=== PATIENT | female | born 1955 | race Caucasian/White ===

== ENCOUNTER 2020-09-18 08:03 | Outpatient (CLI) | payer MEDICARE, OTHER ==
[2020-09-18] VITALS (15 sets, daily range): BP systolic 118–157; BP diastolic 64–79
[~2020-09-18] VITALS: Ht 154.9 cm; Wt 68.0 kg
[2020-09-18] MEDS ORDERED: ASPI-630 PO (08:29)
[2020-09-18 08:40] LABS: HEMATOCRIT 42.9 % (36.0-47.0); HEMOGLOBIN 14.5 g/dL (12.0-15.5); RED BLOOD COUNT 5.21 x10^6/uL (3.50-5.40); RED CELL DISTRIBUTION WIDTH 15.1 % (11.5-14.5); WHITE BLOOD COUNT 6.5 x10^3/uL (4.0-11.0)
[2020-09-18 08:52] LABS: PROTHROMBIN TIME PATIENT 13.5 SEC (11.7-14.0)
[2020-09-18 08:53] LABS: CALCIUM 8.5 mg/dL (8.5-10.1); CREATININE 1.2 mg/dL (0.6-1.0); GFR 44.9; POTASSIUM 3.2 mmol/L (3.5-5.1)
[2020-09-18] MEDS ORDERED: LIDOCAINE 1% PF 2 ML VIAL. ONE (09:05)
[2020-09-18] MEDS ORDERED: IODIXANOL 320 MG/ML 100 ML VIAL. ONE ×2 (09:05→10:35)
[2020-09-18] MEDS ORDERED: BIOT1CAP3 PO (09:21)
[2020-09-18] MEDS ORDERED: GINK120T3 PO (09:21)
[2020-09-18] MEDS ORDERED: CALC-497 PO (09:21)
[2020-09-18] MEDS ORDERED: HYDR12.575 PO (09:21)
[2020-09-18] MEDS ORDERED: fentaNYL PF VIAL 100 MCG/2 ML VIAL ONE (09:48)
[2020-09-18] MEDS ORDERED: NITROGLYCERIN 200 MCG/2 ML SYRINGE FOR CATH/VASC LAB. ONE ×2 (09:49→12:23)
[2020-09-18] MEDS ORDERED: VERAPAMIL 5 MG/2 ML VIAL. ONE (09:49)
[2020-09-18] MEDS ORDERED: MIDAZOLAM HCL/PF 2 MG/2 ML VIAL. ONE (09:49)
[2020-09-18] MEDS ORDERED: HEPARIN for IV BOLUS 10,000 UNIT/10 ML VIAL. ONE (09:49)
[2020-09-18] MEDS ORDERED: BIVALIRUDIN 250 MG VIAL. IV ONE ×3 (10:22→11:00)
[2020-09-18] MEDS ORDERED: NITROGLYCERIN 200 MCG/2 ML SYRINGE FOR CATH/VASC LAB. IART ONE ×2 (10:30→11:00)
[2020-09-18] MEDS ORDERED: IODIXANOL 320 MG/ML 100 ML VIAL. IART ONE (10:30)
[2020-09-18] MEDS ORDERED: LIDOCAINE 1% PF 2 ML VIAL. INJ ONE (10:30)
[2020-09-18] MEDS ORDERED: HEPARIN for IV BOLUS 10,000 UNIT/10 ML VIAL. IART ONE (10:30)
[2020-09-18] MEDS ORDERED: fentaNYL PF VIAL 100 MCG/2 ML VIAL IV ONE (10:30)
[2020-09-18] MEDS ORDERED: VERAPAMIL 5 MG/2 ML VIAL. IART ONE (10:30)
[2020-09-18] MEDS ORDERED: CLOPIDOGREL BISULFATE 75 MG TABLET ONE (10:54)
[2020-09-18] MEDS ORDERED: ASPIRIN 325 MG TABLET ONE (10:54)
[2020-09-18] MEDS ORDERED: NITROGLYCERIN SUBLINGUAL 0.4 MG BOTTLE OF 25. SL PRN (11:00)
[2020-09-18] MEDS ORDERED: CLOPIDOGREL BISULFATE 75 MG TABLET PO ONE (11:00)
[2020-09-18] MEDS ORDERED: ACETAMINOPHEN 325 MG TABLET. PO PRN (11:00)
[2020-09-18] MEDS ORDERED: IV 1/2 NORMAL SALINE 1,000 ML IV SCH (11:00)
[2020-09-18] MEDS ORDERED: ASPIRIN CHEWABLE 81 MG TABLET. PO ONE (11:00)
--- NOTE | 2020-09-18 11:00 | PDOC ---
MODERATE SEDATION ASSESSMENT RISKS/ALTERNATIVES Risks/Alternatives Risks and alternatives of this type of sedation and procedure discussed with: RISK/ALTERNATIVES: Patient H & P ON CHART H & P H & P on chart and reviewed for co-morbid conditions and appropriate labs. H&P ON CHART: Yes STATUS PREG STATUS ASSESSED: N/A MEDS/ALLERGIES REVIEWED Meds/Allergies Reviewed Medications and Allergies including time and route of recently administered narcotics and sedatives. MEDS/ALLERGIES REVIEWED: Yes ASA RATING ASA RATING: II AIRWAY ASSESSMENT Airway Assessment Airway patency, oral function limitations, presence of caps, crowns, dentures, partials, and ability to extend neck assessed. AIRWAY ASSESSMENT: Yes MALLAMPATI SCORE MALLAMPATI SCORE: II PRE-SEDATION ASSESSMENT PRE-SEDATION ASSESSMENT: Yes BETINA ROCKWELL MD Sep 18, 2020 11:00
--- NOTE | 2020-09-18 11:17 | CARD ---
MR#: [id number] Date of Study: 09/18/2020 Ordering Physician: BEITNA ROCKWELL, Referring Physician: BETINA ROCKWELL, Tech: SHARON GONZALEZ RTR APPROVED REPORT Technologist: SHARON GONZALEZ RTR Nurse: Marianna Ochoa R.N. Procedure(s) performed: 1. Left heart catheterization, selective coronary angiography and left ventr iculography via right transradial approach 2. Successful PCI/drug-eluting stents placement to the right coronary artery MODERATE SEDATION TIME: 60 MINS FLUORO TIME:18.6 MIN DOSE: 120 GYCM2 CONTRAST: 200CC VISI INDICATION The indication(s) include : unstable angina . CSHA Clinical Frailty Scale CS Clinical Frailty Scale: Managing Well Heart Failure Heart Failure: No PROCEDURE NARRATIVE After explaining the risks, benefits and alternative options, informed consent was obtained from osiris ent. Patient was brought to the cardiac [facility] and right wrist was prepped and draped in the usual fashion after confirming a positive modified Hector's test. Arterial access was obtained in the righ t radial artery and a 6 Greenlandic sheath was inserted. 6 Greenlandic Julian and 6 Green[place]ic JL 3.5 catheters we re used to perform selective angiography of the right and left coronary arteries. 6 Green[place]ic pigtail c atheter was used to perform left ventriculography. The following findings were noted. FINDINGS 1. Hemodynamics: Left ventricular end-diastolic pressure of 8 mmHg. No pullback gradient across the aortic valve. 2. Left ventriculography: Normal left ventricle systolic function with ejection fraction estimated at 65%. No significant mitral regurgitation seen. 3. Coronary angiography: a. The left main coronary artery arose from the left sinus of Valsalva, gave rise to the left anteri or descending and left circumflex arteries and did not show any significant stenosis. b. The left anterior descending artery showed 40% stenosis involving the mid segment. c. The left circumflex artery showed 30% stenosis involving the proximal segment of the third obtuse marginal branch. d. The right coronary artery was a large and dominant vessel arising from the right sinus of Valsalv a that showed 30% stenosis in the proximal segment, 60% stenosis in the midsegment and a critical 95% stenosis in the mid to distal segment with aneurysmal dilatation within the lesion. INTERVENTION The right coronary artery was engaged with a 6 Greenlandic JR4 guide catheter and the stenoses in the mid and distal segments were crossed with a 0.014 inch gridComm guidewire. These were predilated w ith a 2.5 x 15 mm [employer] Emerge balloon following which they were treated with overlapping 2.5 x 20 mm [employer] Promus Elite and 2.5 X 28 mm [employer] Yuliet drug-eluting stents . Follow-up angiography showed resolution of the stenosis to 0% with CASEY-3 distal flow. Patient to lerated the procedure well. Hemostasis was achieved using TR band. There were no immediate complica tions. CASEY Flow CASEY Flow (Pre-Intervention): CASEY-1 CASEY Flow (Post-Intervention): CASEY-3 Conclusion 1. Severe single-vessel coronary disease involving the right coronary artery 2. Normal left ventricle systolic function with ejection fraction estimated at 65% Recommendations 1. Aspirin 325 mg daily for 1 month followed by 81 mg daily 2. Plavix 75 mg daily 3. Cardiovascular risk factor modification Signed by : Betina Rockwell, Electronically Approved : 09/18/2020 11:17:26
[2020-09-18] MEDS ORDERED: CLOP75TA PO (11:46)
[2020-09-18] MEDS ORDERED: METO25TA4 PO (11:46)
[2020-09-18] MEDS ORDERED: ATOR40TA59 PO (11:46)
[2020-09-18] MEDS ORDERED: ASPI325T8 PO (11:46)
--- NOTE | 2020-09-18 14:20 | NUR ---
Right radial TR Band removed, site cleaned and guaze/opsite dressing applied. No complications.
--- NOTE | 2020-09-18 15:23 | NUR ---
Discharge Note: GIOVANNA TRUJILLO [facility] Discharge instructions and discharge home medications reviewed with Patient and a copy given. All questions have been answered and understanding verbalized. The following instructions and handouts were given: Moderate sedation, radial site care, angioplasty with stent placement, Atorvastatin, Metoprolol. Stent card with additional education included. Discontinued right peripheral IV, bandaid applied, no complications. Right radial dressing and armboard intact. Patient discharged to home with her spouse via private vehicle.
[2020-09-18] MEDS ORDERED: METOPROLOL TART IMMED RELEASE 25 MG TABLET. PO SCH (21:00)
[2020-09-18] MEDS ORDERED: ATORVASTATIN CALCIUM 40 MG TABLET. PO SCH (21:00)
[2020-09-19] MEDS ORDERED: CLOPIDOGREL BISULFATE 75 MG TABLET PO SCH (08:00)
[2020-09-19] MEDS ORDERED: ASPIRIN ENTERIC COATED 325 MG TABLET.DR. PO SCH (08:00)
== END 2020-09-18 15:10 | disposition home or self-care (01) ==
LOC: CCL 08:03
PROVIDERS: ATTEND Internal Medicine Cardiovascular Disease
DX: I25.110 Atherosclerotic heart disease of native coronary artery with unstable angina pectoris (principal); I10 Essential (primary) hypertension; Z90.710 Acquired absence of both cervix and uterus; Z98.890 Other specified postprocedural states; Z79.82 Long term (current) use of aspirin; Z79.899 Other long term (current) drug therapy; Z20.828 Contact with and (suspected) exposure to other viral communicable diseases
CPT/HCPCS: 36415; 80048; 85027; 85610; 87426; 93458; 99152; 99153; C1725; C1769; C1874; C1887; C1892; C9600; C9803; J0583; J1644; J3010; J3490; Q9967; U0003; 92928; C1713

== ENCOUNTER → 2020-10-17 | Outpatient (CLI) | payer MEDICARE, OTHER ==
[2020-09-18 15:00] VITALS: BP 122/66
[~2020-10-17] MED LIST: ASPI-630 PO; ASPI325T8 PO; ATOR40TA59 PO; BIOT1CAP3 PO; CALC-497 PO; CLOP75TA PO; GINK120T3 PO; HYDR12.575 PO; METO100T7 PO; METO25TA4 PO
--- NOTE | 2020-10-18 08:18 | CARD ---
MR#: [id number] Date of Study: 10/17/2020 Ordering Physician: BETINA ROCKWELL, Referring Physician: BETINA ROCKWELL, Tech: Farnaz Santiago APPROVED REPORT EXAM: Two-dimensional and M-mode echocardiogram with Doppler and color Doppler. Other Information Quality : AverageHR: 75bpm INDICATION Chest Pain RISK FACTORS Hypertension 2D DIMENSIONS RVDd3.1 (2.9-3.5cm)Left Atrium(2D)3.5 (1.6-4.0cm) IVSd1.3 (0.7-1.1cm)Aortic Root(2D)3.1 (2.0-3.7cm) LVDd4.5 (3.9-5.9cm)LVOT Diameter2.0 (1.8-2.4cm) PWd1.2 (0.7-1.1cm)LVDs2.3 (2.5-4.0cm) LVEF(%)75.0 (>50%) Aortic Valve AoV Peak Haider.132.9cm/sAoV VTI30.6cm AO Peak GR.7.1mmHgLVOT Peak Haider.94.2cm/s LVOT VTI 22.26cmAO Mean GR.4mmHg Mitral Valve MV E Cvjmsero73.4cm/sMV DECEL BOBR532yb MV A Ebzqqjqy69.0cm/sMV YHN88yy E/A Ratio0.9MVA (PHT)3.44cm2 TDI E/Lateral E'10.1E/Medial E'10.2 Pulmonary Valve PV Peak Rbsuvogh33.8cm/sPV Peak Grad.2mmHg Tricuspid Valve TR P. Ajfjrtwj868dy/sRAP GDFOFAZF8zfPe TR Peak Gr.27tgYySXFQ18ujFk Pulmonary Vein S1 Kqbuzhjk61.7cm/sD2 Yjzxzlba71.1cm/s PVa ucrzjrmx489vqui LEFT VENTRICLE The left ventricle is normal size. There is mild to moderate concentric left ventricular hypertrophy. The left ventricular systolic function is normal and the ejection fraction is within normal range. T he Ejection Fraction is 60-65%. There is normal LV segmental wall motion. Transmitral Doppler flow pa ttern is Grade I-abnormal relaxation pattern. RIGHT VENTRICLE The right ventricle is normal size. There is normal right ventricular wall thickness. The right ventr icular systolic function is normal. ATRIA The left atrium size is normal. The right atrium size is normal. The interatrial septum is intact wit h no evidence for an atrial septal defect or patent foramen ovale as noted on 2-D or Doppler imaging. AORTIC VALVE The aortic valve is normal in structure and function. Doppler and Color Flow revealed no significant aortic regurgitation. There is no significant aortic valvular stenosis. MITRAL VALVE The mitral valve is normal in structure and function. There is no evidence of mitral valve prolapse. There is no mitral valve stenosis. Doppler and Color-flow revealed trace mitral regurgitation. TRICUSPID VALVE The tricuspid valve is normal in structure and function. Doppler and Color Flow revealed trace tricus pid regurgitation with an estimated PAP of 36 mmHg. There is no tricuspid valve stenosis. PULMONIC VALVE The pulmonic valve is not well visualized. Doppler and Color Flow revealed trace pulmonic valvular re gurgitation. There is no pulmonic valvular stenosis. GREAT VESSELS The aortic root is normal in size. The ascending aorta is normal in size. The IVC is normal in size a nd collapses >50% with inspiration. PERICARDIAL EFFUSION There is no evidence of significant pericardial effusion. Critical Notification Critical Value: No <Conclusion> There is mild to moderate concentric left ventricular hypertrophy. The left ventricular systolic function is normal and the ejection fraction is within normal range. Th e Ejection Fraction is 60-65%. There is normal LV segmental wall motion. Signed by : Mg Mayers, Electronically Approved : 10/18/2020 08:18:18
== END ==
LOC: ECHO 12:54
PROVIDERS: ATTEND Internal Medicine Cardiovascular Disease
DX: I51.7 Cardiomegaly (principal); R07.9 Chest pain, unspecified
CPT/HCPCS: 93306

== ENCOUNTER → 2020-11-07 | Outpatient (CLI) | payer MEDICARE, OTHER ==
[2020-09-18 15:00] VITALS: BP 122/66
[~2020-11-07] MED LIST changes: +LIDOCAINE 1% Multi-Dose 20 ML VIAL. INJ ONE
--- NOTE | 2020-11-07 17:04 | RAD ---
ADDENDUM #1 Addendum: Pathology results from the right breast needle biopsy of the 1:00 position indicates invasive ductal carcinoma grade 2. Right axillary lymph node biopsy should no evidence of metastatic carcinoma, favor reactive changes. Pathology results from left breast needle biopsy 1:00 position showed stromal fibrosis with focal apo crine metaplasia. Left axillary lymph node biopsy showed no evidence of metastatic carcinoma, favor r eactive changes. Pathology results are concordant. Malignant on the right, benign on the left. Recommend medical oncologic and surgical consultation. Bilateral breast MRI could be considered for initial staging prior to definitive therapy. Electronically signed by: Gene Sunshine MD (11/15/2020 5:21 PM) [id number] ORIGINAL REPORT Examination: 1. Ultrasound-guided left breast core needle biopsy. 2. Ultrasound-guided left axillary lymph node biopsy. 3. Ultrasound-guided right breast core needle biopsy. 4. Ultrasound-guided right axillary lymph node biopsy. INDICATION: 65-year-old woman with bilateral breast masses and bilateral axillary adenopathy recommen ded for biopsy. She had been on Plavix but had skipped her morning dose on the day of the procedure f or this biopsy. COMPARISON: Bilateral digital diagnostic mammogram and targeted breast ultrasounds of 09/25/2020. TECHNIQUE: Informed consent was obtained and an appropriate procedural pause observed. Then, using separate ster ile equipment in 4 successive procedures starting with the left breast 5 mm mass, proceeding with the left axillary lymph node, continuing with the right breast 6 mm mass and concluding with the right a xillary lymph node, the following procedures were performed in succession. Using standard sterile technique, ultrasound guidance and local anesthesia with 1 percent lidocaine, multiple 14-gauge core biopsy samples of the biopsy target were obtained with all breast lesion sampl es placed in formalin and one of 2 of the axillary lymph node tissue samples obtained from each side placed in formalin as well. The second biopsy sample from each lymph node was placed in fixative for potential flow cytometry. Hemostasis was assured at the conclusion of each lesion biopsy with direct breast compression for sev eral minutes. The right breast lesion at the 10:00 position 2 cm from the nipple was marked with an open padlock sh aped marker. The right axillary lymph node was also marked with a similarly shaped marker. The left breast lesion at the 10:00 position 9 cm from the nipple was marked with an S-shaped marker and so was the left axillary lymph node targeted for biopsy. Marker positioning in each lesion was satisfactory on ultrasound but a post procedure mammogram was o btained bilaterally to document clip morphology and positioning relative to the biopsy targets. This showed satisfactory deployment of the bilateral breast marker is an of the left axillary lymph node m carolann. The right axillary lymph node marker was not easily included on the [id number] in any of th e obtainable projections. There was however no postbiopsy hematoma and the patient tolerated the procedure without incident. The puncture sites were dressed and postprocedure instructions reviewed prior to patient discharge to follow up with her referring physician. IMPRESSION: Successful, uncomplicated bilateral breast and bilateral axillary lymph node biopsy with ultrasound g ceasar. Pathology results are pending. An addendum will be issued once pathology results become avai lable. Electronically signed by: Gene Sunshine MD (11/07/2020 5:02 PM) [id number]
--- NOTE | 2020-11-12 16:06 | PATHOLOGY ---
[facility] Accession Number: [id number] . 01 Material submitted: . PART A: breast - LEFT BREAST MASS AT 1:00 9CMFN. Modifiers: left PART B: axillary tail of breast - LEFT AXILLARY NODE TISSUE. Modifiers: left PART C: breast - RIGHT BREAST MASS 1:00 2CMFN 6MM. Modifiers: right PART D: axillary tail of breast - RIGHT AXILLARY NODE BIOPSY. Modifiers: right . 01 Clinical history: . LEFT BREAST MASS 1:00 9CMFN . 02 Diagnosis: A. Breast tissue, left breast mass 1:00 needle biopsies: - Stromal fibrosis with focal apocrine metaplasia. . B. Lymph node, left axillary lymph node needle biopsy: - No evidence of metastatic carcinoma - favor reactive changes. - See comment. . C. Breast tissue, right breast needle biopsy 1:00: - INVASIVE DUCTAL CARCINOMA, GRADE 2. SEE COMMENT. . D. Lymph node, right axillary lymph node needle biopsy: - No evidence of metastatic carcinoma - favor reactive changes. - See comment. (JPM/db/juvenal; 11/12/2020) LBQ 11/12/2020 1402 Local . 02 Comment: Sections of the left breast mass at 1:00 needle biopsy reveal breast tissue. There is a confluent area of stromal fibrosis with focal apocrine metaplasia. There is no atypia or evidence of malignancy. . Sections of the left axillary lymph node needle biopsy reveal a segment of lymph node with focal attached fibroadipose tissue. There are scattered apparent lymphoid follicles with germinal centers. The paracortex appears expanded and is populated by small lymphocytes. There is no evidence of metastatic carcinoma. A portion of the lymph node submitted for flow cytometric analysis has a viability of 73.6%. B-cells are polyclonal and T-cells have no loss of T-cell antigens. There is no flow immunophenotypic evidence of a B-cell or T-cell lymphoproliferative disorder (see flow report [id number]). A panel of immunoperoxidase stains is obtained on B1 and yields the following results: . AE1/AE3: Negative for metastatic carcinoma CD20: Lymphoid cells of lymphoid follicles and germinal centers positive CD3: Paracortical lymphoid cells positive CD5: Paracortical lymphoid cells positive similar to CD3 CD23: Dendritic cells of lymphoid follicle germinal centers positive CD10: Germinal center lymphoid cells positive BCL6: Lymphoid cells of germinal centers positive BCL2: Lymphoid cells of germinal centers negative; paracortical lymphoid cells positive Cyclin D1: Lymphoid cells negative CD43: Paracortical lymphoid cells positive Ki-67: Lymphoid cells of germinal centers show high proliferation index. . The morphologic and immunophenotypic findings are supportive of the diagnosis of a reactive lymph node. There is no evidence of metastatic carcinoma. . Sections of the right breast mass at 1:00 needle biopsy reveal an invasive mammary carcinoma with focal crush artifactual changes. The tumor shows modest tubule formation. The tumor cells show moderate nuclear pleomorphism. There are several mitotic figures present. The tumor is associated with a reactive desmoplastic stroma. There is a rare tumor associated calcification. The invasive carcinoma measures up to 7 mm in greatest dimension on the glass slide. There is no lymphovascular tumor invasion. Breast prognostic studies will be obtained on block C2, the results of which will be reported separately. . Sections of the right axillary lymph node needle biopsy reveal lymph node and focal attached fibroadipose tissue. There are scattered lymphoid follicles with germinal centers. The paracortex appears expanded by small lymphocytes. There is no evidence of metastatic carcinoma. A portion of the specimen is submitted for flow cytometric analysis and has a viability of 68.4%. B-cells are polyclonal and T-cells have no loss of T-cell antigens. There is no flow immunophenotypic evidence of a B-cell or T-cell lymphoproliferative disorder (see flow report [id number]). A panel of immunoperoxidase stains is obtained on D1 and yields the following results: . AE1/AE3: Negative for metastatic carcinoma. CD20: Lymphoid cells of lymphoid follicles and germinal centers positive. CD3: Paracortical lymphoid cells positive. CD5: Paracortical lymphoid cells positive similar to CD3. CD23: Dendritic cells of lymphoid follicle germinal centers positive. CD10: Lymphoid cells of germinal centers weakly positive. BCL6: Lymphoid cells of germinal centers positive. BCL2: Lymphoid cells of germinal centers negative; paracortical lymphoid cells positive. Cyclin D1: Lymphoid cells negative. CD43: Paracortical lymphoid cells positive. Ki-67: Lymphoid cells of germinal centers show high proliferation index. . The morphologic and immunophenotypical findings are supportive of the diagnosis of a reactive lymph node. There is no evidence of metastatic carcinoma. . Sections of the right breast mass at 1:00 needle biopsy, which show an invasive ductal carcinoma, are also examined by Dr. Dumont, who concurs with the diagnosis. . Although the left axillary and right axillary lymph node needle biopsies show reactive changes and no evidence of metastatic carcinoma, I would caution that the needle biopsies represent a small portion of these enlarged lymph nodes such that I cannot exclude a focal lesion elsewhere within these lymph nodes. (JPM/db/juvenal; 11/12/2020) . Special stains performed: Immunoperoxidase stains for AE1/AE3, CD20, CD3, CD5, CD23, CD10, BCL6, BCL2, cyclin D1, CD43, Ki-67 on B1, and AE1/A3, CD20, CD3, CD5, CD23, CD10, BCL6, BCL2, cyclin D1, CD43, and Ki-67 on D1. . 02 Electronically signed: . Casa Richardson MD, Pathologist NPI- [id number] . 01 Gross description: . A. The specimen is received in formalin, labeled "Briana Peñaloza, left breast 1:00 9 cm FN" and consists of 3 needle cores of white-yellow tissue measuring between 1.0 cm and 1.2 cm in length and 0.2 cm each in diameter which are entirely submitted in A1-A3. The specimen was obtained at 10:11 AM on 11/07/2020 and placed in formalin at 10:11 AM. The cold ischemic time is less than 1 minute and the total formalin fixation time is greater than 6 hours and less than 72 hours. . B. The specimen is received in formalin, labeled "Briana Peñaloza, left axilla node" and consists of a needle core of rowe-yellow tissue measuring 1.8 cm in length and 0.2 cm in diameter which is entirely submitted in B1. . C. The specimen is received in formalin, labeled "PeñalozaBriana, right breast 1:00 2 cm FN" and consists of 4 needle cores of yellow tissue measuring between 0.6 cm and 1.2 cm in length and 0.1-0.2 cm in diameter which are entirely submitted in C1-C3. The specimen was collected at 11:01 AM on 11/07/2020 and placed in formalin at 11:01 AM. The cold ischemic time is less than 1 minute and the total formalin fixation time is greater than 6 hours less than 72 hours. . D. The specimen is received in formalin, labeled "Briana Peñaloza, right axillary node" and consists of a needle core of pink-yellow tissue measuring 1.4 cm in length and 0.1 cm in diameter which is entirely submitted in D1. (SDY; 11/07/2020) SYU/SYU 11/08/2020 1521 Local . 02 Pathologist provided ICD-10: N60.32, N60.82, C50.911 . 02 CPT . 936139, 500216, [id number], [id number], [id number], [id number] Specimen Comment: A courtesy copy of this report has been sent to [phone], [phone] Specimen Comment: [id number] Specimen Comment: Report sent to / DR VILLAREAL Performed at: 01 [facility] [address], [place] [id number] MD Baljeet Sena MD Phone: [phone] Performed at: [facility] [address] [place], [place] [id number] MD Casa Richardson MD Phone: [phone]
== END | disposition home or self-care (01) ==
LOC: US 09:24
PROVIDERS: ATTEND Surgery
DX: N60.32 Fibrosclerosis of left breast (principal); N60.82 Other benign mammary dysplasias of left breast; C50.911 Malignant neoplasm of unspecified site of right female breast; I25.10 Atherosclerotic heart disease of native coronary artery without angina pectoris; I10 Essential (primary) hypertension; Z90.710 Acquired absence of both cervix and uterus; Z98.890 Other specified postprocedural states; Z79.899 Other long term (current) drug therapy; Z79.82 Long term (current) use of aspirin
CPT/HCPCS: 19083; 38505; 76942; 77066; 88184; 88185; 88305; 88341; 88342; 88361; C1713; 19081; 19084

== ENCOUNTER 2020-11-28 07:35 | Day surgery (SDC) | payer MEDICARE ==
[~2020-11-28] VITALS: Ht 154.9 cm; Wt 72.0 kg
[~2020-11-28 07:35] MED LIST changes: +ACETAMINOPHEN 500 MG TABLET PO ONE; +HYDROmorphone 2 MG/ML VIAL IVP PRN; +IV RINGERS,LACTATED 1000ML 1,000 ML IV SCH; -LIDOCAINE 1% Multi-Dose 20 ML VIAL. INJ ONE; +MORPHINE SULFATE 2 MG/ML VIAL. IVP PRN; +PROCHLORPERAZINE 10 MG/2 ML VIAL. IVP PRN; +ceFAZolin SODIUM IV Push 1 GM VIAL. IVP ONE; +fentaNYL PF VIAL 100 MCG/2 ML VIAL IVP PRN
[2020-11-28] MEDS ORDERED: PROPOFOL 10 MG/ML (20ML) VIAL. IV ONE (09:25)
[2020-11-28] MEDS ORDERED: ISOSULFAN BLUE 1% 50 MG/5 ML VIAL. SQ ONE (09:25)
[2020-11-28] MEDS ORDERED: FAMOTIDINE 20 MG/2 ML VIAL ONE (09:25)
[2020-11-28] MEDS ORDERED: DEXAMETHASONE SOD PHOS 4 MG/ML VIAL ONE (09:25)
[2020-11-28] MEDS ORDERED: ONDANSETRON PF 4 MG/2 ML VIAL. ONE (09:25)
[2020-11-28] MEDS ORDERED: LIDOCAINE 2% PF 5 ML VIAL. ONE (09:25)
[2020-11-28] MEDS ORDERED: BUPIVACAINE-EPI 0.25% 30 ML VIAL KIT. ONE (09:39)
[2020-11-28] MEDS ORDERED: hydrALAZINE 20 MG/ML VIAL. ONE (09:41)
[2020-11-28] MEDS ORDERED: hydrALAZINE 20 MG/ML VIAL. IVP PRN (10:00)
[2020-11-28] MEDS ORDERED: fentaNYL PF VIAL 100 MCG/2 ML VIAL ONE (10:01)
[2020-11-28] MEDS ORDERED: PHENYLEPHRINE in 0.9% NACL PF 1 MG/10 ML SYRINGE. IV ONE (10:12)
[2020-11-28] MEDS ORDERED: ePHEDrine PF IN SALINE 50 MG/10 ML SYRINGE. IV ONE (10:17)
--- NOTE | 2020-11-28 11:10 | RAD ---
Examination: Right breast specimen radiograph INDICATION: Status post lumpectomy for right breast invasive ductal carcinoma. COMPARISON: 11/07/2020 right postprocedure mammogram FINDINGS: A single lumpectomy surgical specimen is presented for review, placed on a grid in the specimen cup. The biopsied mass and biopsy marker within the mass are evident in the specimen, projecting over the letter G on the grid. This is eccentrically located within the specimen. There is no localizing wire or seed. IMPRESSION: Surgical specimen contains the biopsied mass and biopsy marker. Discussed with Dr. Knutson by telephone at 11:02 AM on 11/28/2020
--- NOTE | 2020-11-28 11:11 | PDOC4 ---
Operative Note Operative Note Date: November 282020 at 1107 Preoperative diagnosis: Right breast cancer Postoperative diagnosis: Same Procedure: Right breast lumpectomy with sentinel lymph node biopsy Surgeon: Eamon Specimen: Right axillary sentinel lymph node and right breast lumpectomy Dictation: Patient is a 65-year-old female who on mammogram was found to have a suspicious lesion in her right breast stereotactic breast biopsy was performed which showed invasive ductal carcinoma. The procedure of lumpectomy with sentinel lymph node biopsy was explained to the patient in detail risk-benefit were also discussed including bleeding infection. Alternatives to this procedure also discussed with the patient who seemed to understand and gave both verbal and written consent to have the procedure performed. Patient was taken to the operating room placed in the supine position general anesthesia was initiated once patient was sleeping intubated her right chest was prepped and d raped usual sterile fashion using ChloraPrep. Area in the 4 quadrants around the nipple areolar complex were injected with Lymphazurin and this was allowed 5 minutes to migrate. Using the [place] counter the axilla was investigated there was an area where the signal was quite high this was the area that was injected with quarter percent Marcaine with epinephrine incision was made with a 15 blade scalpel is carried down through the subcutaneous tissue using electrocautery right hemostasis a chain lymphatic with Lymphazurin within it was followed slightly deeper and a moderate sized lymph node was encountered that was also blue with Lymphazurin. As this was removed there were 3 other lymph nodes that were closely adherent which were also removed with the sentinel node. These were sent for frozen section. Once this was complete tensions returned to the lumpectomy area over the breast at about the 1 o'clock position 1 cm from the nipple areolar complex was injected with quarter percent Marcaine with epinephri ne incision was made with 15 blade scalpel is carried down to subcutaneous tissue using electrocautery right hemostasis using electrocautery large specimen of tissue was excised and marked with suture the superior border was marked with a short stitch the lateral border with a long stitch and double stitches for the deep margin. The specimen was then sent to radiology to verify clip placement. By radiology report clip was within the specimen. The wound was then closed in 2 layers the deep layer running 3-0 Vicryl and the skin was reapproximated for subcuticular Monocryl the axillary incision was closed in similar fashion with a deep layer running 3-0 Vicryl and the skin was reapproximated for subcuticular Monocryl Mastisol Steri-Strips and island dressing were applied. Patient was awakened and extubated in the operating room taken to recovery in stable condition all sponge instrument needle counts listed as correct estimated blood loss 20 mL. LEVI VILLAREAL MD Nov 28, 2020 11:11
--- NOTE | 2020-11-28 11:13 | DISCH ---
DISCHARGE INSTRUCTIONS Condition on Discharge Condition on Discharge: Stable Activity After Discharge Activity Instructions for Disc: Activity as tolerated Diet after Discharge Diet after Discharge: Regular Wound Incision Care Other wound/incision instructi: Kristel shower in 24 hours Contacting the DRRisa after DC Call your doctor for: If your condition worsens Follow-Up Follow up with: Dr. Villareal in 2 weeks Treatment/Equipment after DC Adaptive Equipment Issued: None LEVI VILLAREAL MD Nov 28, 2020 11:13
[2020-11-28] MEDS ORDERED: HYDROcodone/APAP 5/325MG 1 TAB TABLET PO ONE (12:15)
[2020-11-28 12:20] VITALS: BP 164/85
--- NOTE | 2020-11-29 18:30 | RAD ---
Radiopharmaceutical injection of the right breast for sentinel node mapping INDICATION: 65-year-old woman with new diagnosis right breast cancer. COMPARISON: Right postprocedure mammogram of 11/07/2020 TECHNIQUE AND FINDINGS: Informed consent was obtained and an appropriate procedural pause observed. Using standard sterile te chnique, a total of 1000 uCi of technetium labeled Tilmanocept radiopharmaceutical was injected in a single hypodermal periareolar injection. This was completed at approximately 9:25 am on 11/28/2020. No apparent complications. The wheel was sized and patient transported in stable condition to the perio perative care unit. IMPRESSION: Right breast radiopharmaceutical injection for sentinel node mapping as described. Electronically signed by: Gene Sunshine MD (11/29/2020 6:28 PM) [id number]
--- NOTE | 2020-12-05 16:09 | PATHOLOGY ---
[facility] Accession Number: [id number] . 01 Material submitted: . PART A: lymph node - RIGHT SENTINEL NODE. Modifiers: right PART B: breast - RIGHT BREAST MASS SHORT STITCH SUPERIOR LONG, STITCH LAT DOUBLE DEEP. Modifiers: right . 01 Clinical history: . RIGHT BREAST LUMPECTOMY . 02 Frozen section diagnosis: . INTRAOPERATIVE CONSULTATION WITH FROZEN SECTION (Dr. Casa Richardson) . FSA1. [place] lymph node biopsy: - Four lymph nodes negative for tumor. . The results are reported to Dr. Knutson in the operating room. The tissue remaining from frozen section is submitted for permanent sections as A1 and A2. The remainder of the 3 smaller lymph nodes are submitted together in A3. . . INTRAOPERATIVE CONSULT GROSS DESCRIPTION The specimen is received fresh for intraoperative consultation and is designated "sentinel node". This consists of an irregular segment of yellow-red fatty tissue measuring up to 4.5 x 3.0 x 1.0 cm in greatest dimension. Sectioning reveals 4 lymph nodes. There are 3 smaller lymph nodes, each measuring approximately 1 to 1.2 cm in greatest dimension. The largest lymph node shows focal blueish discoloration and measures up to approximately 2 cm in greatest dimension. The largest lymph node is bisected and submitted for frozen section as FSA1. One of the smaller lymph nodes is inked blue. Another of the smaller lymph nodes is inked black. The remaining small lymph node is not inked. One half of each of these lymph nodes are submitted together for frozen section as FSA2. (JPM:alayna; 11/28/2020) . Frozen section performed at [facility], [address] [place] [address], [place] [address]. MAUDE/FABY . 02 Diagnosis: A. Lymph nodes and fibroadipose tissue, sentinel lymph node biopsy: - Four lymph nodes negative for tumor (0/4). . B. Breast tissue, right breast lumpectomy: - INVASIVE DUCTAL CARCINOMA, HISTOLOGIC GRADE 2, MEASURING 7 MM IN GREATEST DIMENSION. - Tumor is approximately 7 mm from the closest medial, anterior, and posterior margins of resection. - No lymphovascular tumor invasion identified. - Previous biopsy site changes. - Fibrocystic changes with focal mild ductal epithelial hyperplasia. (JPM:mmmelanie; 12/05/2020) . . Surgical Pathology Cancer Case Summary . Protocol posting date: November 2019 . Procedure ___ Other: Lumpectomy . Specimen Laterality ___ Right . Tumor Site ___ Clock position: 1 o'clock . Tumor Size ___ Greatest dimension of largest invasive focus >1 mm: 7 mm . Histologic Type ___ Invasive carcinoma of no special type (ductal) . Histologic Grade (Cyril Histologic Score) Glandular (Acinar)/Tubular Differentiation ___ Score 2 (10% to 75% of tumor area forming glandular/tubular structures) . Nuclear Pleomorphism ___ Score 2 (cells larger than normal with open vesicular nuclei, visible nucleoli, and moderate variability in both size and shape) . Mitotic Rate ___ Score 2 . Overall Grade ___ Grade 2 (scores of 6 or 7) . + Tumor Focality + ___ Single focus of invasive carcinoma . Ductal Carcinoma In Situ (DCIS) ___ Not identified . Margins Invasive Carcinoma Margins ___ Uninvolved by invasive carcinoma Distance from closest margin: ___ Specify 7 mm . + Specify closest margin(s): Medial, anterior, and posterior . Regional Lymph Nodes ___ Uninvolved by tumor cells Total Number of Lymph Nodes Examined: 4 Number of [place] Nodes Examined: 4 . + Lymphovascular Invasion + ___ Not identified . Pathologic Stage Classification (pTNM, AJCC 8th Edition) Primary Tumor (pT) ___ pT1b:Tumor >5 mm but less than or equal to 10 mm in greatest dimension . Regional Lymph Nodes (pN) ___ pN0:No regional lymph node metastasis identified or ITCs only . + Additional Pathologic Findings + Specify: See diagnoses . + ___ Breast Biomarker Testing Performed on Previous Biopsy + Testing Performed on . + Estrogen Receptor (ER) + ___ Positive: 90% . + Progesterone Receptor (PgR) + ___ Positive 15% . + HER2 + ___ Negative (Score 1+) . + ___ Ki-67 percentage of positive nuclei: 25% . + Microcalcifications + ___ Present in non-neoplastic tissue . (JPM:alayna; 12/05/2020) [facility] 12/05/2020 1539 Local . 02 Comment: Examination of the sentinel lymph node biopsy actually reveals four lymph nodes. The sentinel lymph nodes are examined at multiple levels. Immunoperoxidase stains for AE1/AE3 are also obtained on each of the sentinel lymph node biopsy sections and yield the following results: . AE1/AE3 (A1): Negative for tumor AE1/AE3 (A2): Negative for tumor AE1/AE3 (A3): Negative for tumor . There are a total of four sentinel lymph nodes, all of which are negative for tumor. . Special stains performed: Immunoperoxidase stains for AE1/AE3 on A1, A2 and A3 . (JPM:julia; 12/05/2020) . . 02 Electronically signed: . Casa Richardson MD, Pathologist NPI- [id number] . 01 Gross description: . A. PLEASE SEE GROSS DESCRIPTION UNDER FROZEN SECTION DIAGNOSIS. . B. The specimen is received in formalin, labeled "Briana Peñaloza, Jason breast mass" and consists of an oriented 96 g lumpectomy specimen with a short stitch superior, long lateral, and double deep. It measures 7.8 cm S-I, 7.1 cm L-M, 2.5 cm A-P, and is inked as follows: superior-blue, inferior-green, medial-red, lateral-yellow, anterior-orange, and posterior-black. It is sectioned from superior to inferior into 17 slices revealing a pink-rowe stellate mass in slices 10-12 measuring 1.5 x 1.0 cm that is to margins as follows: Grossly approaches medial, 4.3 cm lateral, 1.0 cm posterior, 1.0 cm anterior, and greater than 2 cm superior and inferior. The mass shows previous biopsy changes. No clip is identified. The uninvolved parenchyma is yellow orange lobulated with minimal fibrous tissue and no additional masses. Pulp Press Tender sections are submitted as follows: . B1-B3: Slice 1 superior, perpendicular B4-B6: Slice 9 B7-B9: Slice 10 B10-B12: Slice 11 B13-B16: Slice 12 B17-B19: Slice 17 inferior, perpendicular . The specimen was obtained at 10:48 AM on 11/28/2020 and placed in formalin 11 AM. The cold ischemic time is 12 minutes and the total formalin fixation time is greater than 6 hours and less than 72 hours. (SDY; 11/29/2020) SYU/SYU 11/30/2020 1730 Local . 02 Pathologist provided ICD-10: C50.911, N60.11, N62 . 02 CPT . 763950, 792192, 991668, 618196, [id number] Specimen Comment: Report sent to Performed at: 01 [facility] [address] [facility] [address], [place] [id number] MD Baljeet Sena MD Phone: [phone] Performed at: 02 [facility] [address] [place], [place] [id number] MD Casa Richardson MD Phone: [phone]
== END 2020-11-28 12:00 | disposition home or self-care (01) ==
LOC: NM 07:35
PROVIDERS: ATTEND Surgery
DX: C50.911 Malignant neoplasm of unspecified site of right female breast (principal); N60.11 Diffuse cystic mastopathy of right breast; N62 Hypertrophy of breast; I25.10 Atherosclerotic heart disease of native coronary artery without angina pectoris; I10 Essential (primary) hypertension; Z90.710 Acquired absence of both cervix and uterus; Z98.890 Other specified postprocedural states; Z79.899 Other long term (current) drug therapy; Z79.82 Long term (current) use of aspirin; Z20.822 Contact with and (suspected) exposure to COVID-19
CPT/HCPCS: 19301; 38525; 38792; 76098; 87426; 96374; A9520; C9803; J0360; J0690; J1100; J2370; J2405; J2704; J3010; J3490; J7120; Q9968; U0003; 88307; 88331; 88332; 88342

== ENCOUNTER → 2021-01-25 | Outpatient (CLI) | payer MEDICARE ==
[~2021-01-25] MED LIST changes: -ACETAMINOPHEN 500 MG TABLET PO ONE; -HYDROmorphone 2 MG/ML VIAL IVP PRN; -IV RINGERS,LACTATED 1000ML 1,000 ML IV SCH; -MORPHINE SULFATE 2 MG/ML VIAL. IVP PRN; -PROCHLORPERAZINE 10 MG/2 ML VIAL. IVP PRN; -ceFAZolin SODIUM IV Push 1 GM VIAL. IVP ONE; -fentaNYL PF VIAL 100 MCG/2 ML VIAL IVP PRN
--- NOTE | 2021-01-25 14:53 | KCIC ---
EXAM: DUAL ENERGY X-RAY ABSORPTIOMETRY (DEXA). HISTORY: Postmenopausal screening. Breast cancer. FINDINGS: The lowest measured T-score is -1.1 in the left hip, based on a bone mineral density of 0.8 02 g/cm^2. Refer to the worksheets for full detail. No comparison examinations are available. IMPRESSION: 1. Low bone mass. Bone mineral density yields a T-score between -1.0 and -2.5. Fracture risk is incre ased. 2. FRAX report: Not calculated. METHODOLOGY: Dual energy x-ray absorptiometry was performed to measure bone mineral density. The foll owing analysis is based on the 2019 Official Positions of the International Society for Clinical Dens itometry: Measurements of the hips and the average of L1-L4 are preferred. When the spine and/or hip cannot be feasibly measured or interpreted, or in the setting of hyperparathyroidism, distal radial bone minera l density may be measured. The lumbar spine T-score is based on the average bone mineral density of L1-L4. In the setting of art ifact or anatomic abnormality, some lumbar levels may be excluded, and the remaining levels used for calculation. A single lumbar level is not used for diagnosis, and if only a single level is available for assessment, another anatomic site will be used to assign a diagnosis. The hip T-score is based on the bone mineral density measurement of the femoral neck or total proxima l femur of either side, whichever is lowest. Bilateral mean values are not used for diagnosis. The forearm T-score is derived from 33% of the distal radius of the nondominant forearm. Electronically signed by: Nadege Moon MD (01/25/2021 2:51 PM) [id number]
== END ==
LOC: KCIC DEXA 14:22
PROVIDERS: ATTEND Internal Medicine Hematology & Oncology
DX: Z78.0 Asymptomatic menopausal state (principal); M89.9 Disorder of bone, unspecified
CPT/HCPCS: 77080

== ENCOUNTER → 2021-01-29 | Outpatient (CLI) | payer MEDICARE ==
[2021-01-29 15:13] LABS: BASO # 0.1 x10^3/uL (0.0-0.2); BASO % 1 % (0-3); EOS # 0.3 x10^3/uL (0.0-0.7); EOS % 5 % (0-3); HEMATOCRIT 33.4 % (36.0-47.0); HEMOGLOBIN 11.1 g/dL (12.0-15.5); LYMPH # 0.7 x10^3/uL (1.0-4.8); LYMPH % 11 % (24-48); MEAN CORPUSCULAR HEMOGLOBIN 27 pg (25-35); MEAN CORPUSCULAR HGB CONC 33 g/dL (31-37); MEAN CORPUSCULAR VOLUME 81 fL (79-100); MONO # 0.7 x10^3/uL (0.0-1.1); MONO % 11 % (0-9); NEUT # 4.4 x10^3/uL (1.8-7.7); NEUT % 72 % (31-73); PLATELET COUNT 458 x10^3/uL (140-400); RED CELL DISTRIBUTION WIDTH 15.1 % (11.5-14.5); WHITE BLOOD COUNT 6.2 x10^3/uL (4.0-11.0)
== END ==
LOC: ONCLAB 14:32
PROVIDERS: ATTEND Radiology Radiation Oncology
DX: C50.211 Malignant neoplasm of upper-inner quadrant of right female breast (principal)
CPT/HCPCS: 36415; 85025

== ENCOUNTER 2021-04-25 05:31 | Emergency (ER) | payer MEDICARE ==
[~2021-04-25] VITALS: Ht 154.9 cm; Wt 67.7 kg
[2021-04-25] MEDS ORDERED: GELATIN SPONGE SIZE 12-7MM SPONGE. ONE (06:25)
[2021-04-25] MEDS ORDERED: GELATIN SPONGE SIZE 12-7MM SPONGE. TP ONE (06:30)
--- NOTE | 2021-04-25 06:40 | PHYS DOC ---
Past Medical History Past Medical History: No Pertinent History Past Surgical History: Other Additional Past Surgical Histo: Lumpectomy R breast, stent placement Smoking Status: Never Smoker Alcohol Use: None General Adult EDM: Chief Complaint: WOUND CHECK HPI: HPI: 65-year-old female presenting to the emergency department today with a wound in the right breast which was packed yesterday and has been bleeding slowly since. She is on Plavix. She felt mildly nauseous as she was being checked in 2 the emergency department. Onset yesterday. Location right breast wound. Duration constant. No alleviating factors. Review of systems is negative for abdominal pain vomiting fevers chills. All other review of systems negative. Heart Score: C/O Chest Pain: No Risk Factors: Risk Factors: DM, Current or recent (<one month) smoker, HTN, HLP, family history of CAD, obesity. Risk Scores: Score 0 - 3: 2.5% MACE over next 6 weeks - Discharge Home Score 4 - 6: 20.3% MACE over next 6 weeks - Admit for Clinical Observation Score 7 - 10: 72.7% MACE over next 6 weeks - Early Invasive Strategies Current Medications: Current Medications Medications (Trade) Dose Ordered Sig/Louie Start Time Stop Time Status Last Admin Dose Admin Gelatin (Gelfoam Size 12-7mm) 1 each 1X ONCE 04/25/21 06:30 04/25/21 06:32 DC 04/25/21 06:30 1 EACH Allergies: Allergies: Allergies Coded Allergies Type Severity Reaction Last Updated Verified No Known Drug Allergies 11/28/20 No Physical Exam: PE: Constitutional: Well developed, well nourished, no acute distress, non-toxic appearance. [] HENT: Normocephalic, atraumatic, bilateral external ears normal, oropharynx moist, no oral exudates, nose normal. [] Eyes: PERRLA, EOMI, conjunctiva normal, no discharge. [] Neck: Normal range of motion, no tenderness, supple, no stridor. [] Cardiovascular:Heart rate regular rhythm, no murmur [] The patient's right chest wall has a 1 cm wound that is currently packed with gauze. Gelfoam was placed over top with a new 4 x 4 bandage. Lungs & Thorax: Bilateral breath sounds clear to auscultation [] Abdomen: Bowel sounds normal, soft, no tenderness, no masses, no pulsatile masses. [] Skin: Warm, dry, no erythema, no rash. [] Back: No tenderness, no CVA tenderness. [] Extremities: No tenderness, no cyanosis, no clubbing, ROM intact, no edema. [] Neurologic: Alert and oriented X 3, normal motor function, normal sensory function, no focal deficits noted. [] Psychologic: Affect normal, judgement normal, mood normal. [] Current Patient Data: Vital Signs: Vital Signs Date Time Temp Pulse Resp B/P (MAP) Pulse Ox O2 Delivery O2 Flow Rate FiO2 04/25/21 06:00 98.6 59 18 134/62 (111) 99 Room Air 98.6 EKG: EKG: [] Radiology/Procedures: Radiology/Procedures: [] Course & Med Decision Making: Course & Med Decision Making Pertinent Labs and Imaging studies reviewed. (See chart for details) [] Wound repacked and bleeding has stopped. Hemoglobin is 9.2. Previous in January was 11. Patient is hemodynamically stable. We will discharge to follow- up with PCP tomorrow for repeat hemoglobin check. She is to return for any worsening bleeding. Dragon Disclaimer: Dragon Disclaimer: This electronic medical record was generated, in whole or in part, using a voice recognition dictation system. Departure Departure Impression: Primary Impression: Bleeding from wound Disposition: 01 HOME / SELF CARE / HOMELESS Condition: STABLE Referrals: MICHELLE CORMIER MD (PCP) Patient Instructions: Postsurgical Bleeding GERONIMO GRULLON MD Apr 25, 2021 06:40
[2021-04-25 07:03] LABS: CREATININE ISTAT 1.1 mg/dL (0.5-1.4); HEMOGLOBIN ISTAT 9.2 g/dL (12-15); ION CA ISTAT 1.09 mmol/L (1.13-1.32); POTASSIUM ISTAT 4.1 mmol/L (3.5-5.0)
[2021-04-25 07:07] VITALS: BP 118/56
== END 2021-04-25 07:39 | disposition home or self-care (01) ==
LOC: ER 05:31
DX: S21.001A Unspecified open wound of right breast, initial encounter (principal); R11.0 Nausea; X58.XXXA Exposure to other specified factors, initial encounter; Y93.89 Activity, other specified; Y92.89 Other specified places as the place of occurrence of the external cause; Y99.8 Other external cause status
CPT/HCPCS: 80047; 99284

== ENCOUNTER → 2021-05-07 | Outpatient (CLI) | payer MEDICARE ==
[2021-04-25 07:07] VITALS: BP 118/56
--- NOTE | 2021-05-08 18:37 | RAD ---
MR#: [id number] Date of Study: 05/07/2021 Ordering Physician: BETINA ROCKWELL, Referring Physician: BETINA ROCKWELL, Tech: Farnaz Underwood RDMS, RVT, RTR APPROVED REPORT Patient Location: OUT-PATIENT Indications Uncontrolled HTN Renal Artery Doppler Right Renal Artery Left Renal Arter y Proximal 171.0/34.6 cm/secProximal Mid 97.2/26.5 cm/secMid Distal 74.8/17.8 cm/secDistal Renal/Aorta Ratio 0.00Renal/Aorta Ratio Prox. Resistive Index 0.80Prox. Resistive Index Mid Resistive Index 0.73Mid Resistive Index Distal Resistive Index 0.76Distal Resistive Index Rt. Segmental A. 39.5/10.3 cm/secLt. Segmental A. Aortic Doppler VelocityWaveform Mid. Aorta 114.5 cm/sec Findings Grayscale images of the right kidney are grossly unremarkable. Grayscale images of the left kidney are notable for large cystic structures in the area of the left k idney without any obvious evidence of renal vasculature noted. Aortic velocities are within normal limits with mild diffuse atherosclerosis of the aorta. Mildly elevated proximal and normal mid and distal renal artery velocities are noted with normal octavio l to aortic ratios of 1.5 on the right side and normal resistive indices. Critical Notification Critical Value: No <Conclusion> 1. No significant renal artery stenosis based on evaluation of the right renal artery 2. The left kidney and renal vasculature were not visualized with large cystic structures in the are a of the left renal fossa. 3. Consider CT angiogram of the abdominal aorta if there is concern for secondary hypertension. Signed by : Mg Mayers, Electronically Approved : 05/08/2021 18:37:11
== END ==
LOC: US 08:59
PROVIDERS: ATTEND Internal Medicine Cardiovascular Disease
DX: I10 Essential (primary) hypertension (principal)
CPT/HCPCS: 93975

== ENCOUNTER → 2021-05-15 | Outpatient (CLI) | payer MEDICARE ==
[2021-04-25 07:07] VITALS: BP 118/56
--- NOTE | 2021-05-15 11:44 | RAD ---
EXAM: Right breast ultrasound. HISTORY: Nonhealing wound at lumpectomy site. COMPARISON: None. FINDINGS: Sonographic evaluation of the right breast was performed at the 1:00 position 2 cm from the nipple, at the site of the open wound. This reveals a packed cavity within the parenchyma measuring 4.3 x 2.4 x 2.8 cm. No residual fluid collection is identified. There is no clear associated mass. Th ere is no surrounding hyperemia. Images of the right axilla revealed normal-appearing lymph nodes. IMPRESSION: 1. 4.3 cm packed cavity at the site of concern. No residual fluid collection or clear mass. Ongoing m anagement is recommended. 2. BI-RADS Category 2: Benign findings. Electronically signed by: Joslyn Bartholomew MD (05/15/2021 11:41 AM) [id number]
== END ==
LOC: US 11:05
PROVIDERS: ATTEND Radiology Radiation Oncology
DX: C50.211 Malignant neoplasm of upper-inner quadrant of right female breast (principal)
CPT/HCPCS: 76641

== ENCOUNTER → 2021-11-27 | Outpatient (CLI) | payer MEDICARE ==
[~2021-11-27] MED LIST changes: +REGADENOSON 0.4 MG/5 ML DISP.SYRIN. IV ONE
--- NOTE | 2021-11-27 13:09 | RAD ---
MR#: [id number] Date of Study: 11/27/2021 Ordering Physician: BETINA ROCKWELL, Referring Physician: LAN OLEARY Tech: RT Reyes Cadet) (N) APPROVED REPORT Test Type: Pharmacological Stress Nurse/Tech: Marianna Ochoa R.N. Test Indications: cad Cardiac History: cad, stents x2, htn, Medications: see ehr Medical History: see ehr Resting ECG: sr Resting Heart Rate: 60 bpm Resting Blood Pressure: 171/88mmHg Pretest Chest Pain: No chest pain Nurse/Tech Notes lungs cta, heart tones regular, pt did not take BP meds Consent: The procedure was explained to the patient in lay terms. Informed consent was witnessed. Sylvester eout was entered into [employer]. History and Stress Test performed by RT Diallo (R) (N) Pharm. Details Pharmacologic stress testing was performed using 0.4mg per 5ml of regadenoson given intravenously ove r 7-10 seconds. Stress Symptoms No chest pain or symptoms. POST EXERCISE Reason for Termination: Infusion complete Target HR: No Max HR: 97 bpm Max Blood Pressure: 182/85mmHg Chest Pain: No. Arrhythmia: No. ST Change: No. INTERPRETATION Stress EKG Conclusion: Baseline EKG showed sinus rhythm. No ischemic changes at peak stress. No arr hythmias. Imaging Protocol IMAGE PROTOCOL: Rest Tc-99m/stress Tc-99m 1 day Rest: Stress: Viability: Radiopharm.Tc99m HonfjriliMx02i Sestamibi Dose10.5mCi 32.4mCi Duration 15min. 15min. Img Date 11/27/2021 11/27/2021 Inj-Img [id number]. 60min. Rest Admin Site:IV - Right AntecubitalAdministrator:RT Reyes Landrum)(N) Stress Admin Site: IV - Right AntecubitalAdministrator: RT Diallo (R)(N) STRESS DATA End Diast. Vol.69.0mlLVEDV index BSA42.0ml End Syst. Vol.19.0mlLVESV index BSA12.0ml Myocardial Mdvr563.0gEject. Hkibbawy92.0% Stress Scores Regional WT0.00Summed WT0.00 Regional WM0.00Summed WM3.00 Study quality was good. Left Ventricular size was Normal at Rest and Stress. Lung uptake was . Left Ventricular ejection fraction is 75%. The rest and stress images show normal perfusion, normal contraction and thickening. LV Perf. Quant 17 Seg. SSS0.00 17 Seg. SRS2.00 17 Seg. SDS0.00 Stress Defect Extent (% LAD)0.00Rest Defect Extent (% LAD)0.00Rev. Defect Extent (% LAD)0.00 Stress Defect Extent (% LCX) 0.00Rest Defect Extent (% LCX)18.80Rev. Defect Extent (% LCX)0.00 Stress Defect Extent (% RCA)0.00Rest Defect Extent (% RCA)0.00Rev. Defect Extent (% RCA)0.00 Stress Defect Extent (% ERICA)0.00Rest Defect Extent (% ERICA)3.30Rev. Defect Extent (% ERICA)0.00 Conclusion 1. Regadenoson cardioisotope stress test did not show any evidence of ischemia or infarct. 2. Normal left ventricular systolic function with ejection fraction calculated at 75%. 3. Low risk for cardiac events. Signed by : Betina Rockwell, Electronically Approved : 11/27/2021 13:08:27
--- NOTE | 2021-11-27 13:14 | CARD ---
MR#: [id number] Date of Study: 11/27/2021 Ordering Physician: BETINA ROCKWELL, Referring Physician: BETINA ROCKWELL Tech: Nakia Johnson [facility] APPROVED REPORT EXAM: Two-dimensional and M-mode echocardiogram with Doppler and color Doppler. Other Information Quality : GoodHR: 60bpm Rhythm : NSR INDICATION Chest Pain 2D DIMENSIONS RVDd2.6 (2.9-3.5cm)Left Atrium(2D)4.3 (1.6-4.0cm) IVSd0.9 (0.7-1.1cm)Aortic Root(2D)2.8 (2.0-3.7cm) LVDd4.5 (3.9-5.9cm)LVOT Diameter1.9 (1.8-2.4cm) PWd1.0 (0.7-1.1cm)LVDs2.3 (2.5-4.0cm) FS (%) 49.0 %SV72.7 ml LVEF(%)80.5 (>50%) Aortic Valve AoV Peak Haider.137.7cm/sAoV VTI32.1cm AO Peak GR.7.6mmHgLVOT Peak Haider.88.2cm/s AO Mean GR.3mmHgAVA (VMAX)1.75cm2 Mitral Valve MV E Yruwcius09.1cm/sMV DECEL [id number] MV A Voxnslux57.5cm/sE/A Ratio1.2 Pulmonary Valve PV Peak Cwuvthrq67.9cm/s Tricuspid Valve TR P. Cacakwip755cv/sTR Peak Gr.21mmHg LEFT VENTRICLE The left ventricle is normal size. There is normal left ventricular wall thickness. The left ventricu lar systolic function is normal. Estimated ejection fraction 60%. There is normal LV segmental wall motion. The left ventricular diastolic function and filling is normal for age. RIGHT VENTRICLE The right ventricle is normal size. There is normal right ventricular wall thickness. The right ventr icular systolic function is normal. ATRIA The left atrium size is normal. The right atrium size is normal. The interatrial septum is intact wit h no evidence for an atrial septal defect or patent foramen ovale as noted on 2-D or Doppler imaging. AORTIC VALVE The aortic valve is normal in structure and function. Doppler and Color Flow revealed no significant aortic regurgitation. There is no significant aortic valvular stenosis. MITRAL VALVE The mitral valve is normal in structure and function. There is no evidence of mitral valve prolapse. There is no mitral valve stenosis. Doppler and Color-flow revealed mild mitral regurgitation. TRICUSPID VALVE The tricuspid valve is normal in structure and function. Doppler and Color Flow revealed trace tricus pid regurgitation. Estimated PAP 23-25 mmHg. There is no tricuspid valve stenosis. PULMONIC VALVE The pulmonary valve is normal in structure and function. Doppler and Color Flow revealed mild pulmoni c valvular regurgitation. GREAT VESSELS The aortic root is normal in size. The ascending aorta is normal in size. The IVC is normal in size a nd collapses >50% with inspiration. PERICARDIAL EFFUSION There is no evidence of significant pericardial effusion. Critical Notification Critical Value: No <Conclusion> The left ventricular systolic function is normal. Estimated ejection fraction 60%. There is normal LV segmental wall motion. Mild mitral regurgitation. Trace tricuspid regurgitation. Estimated PAP 23-25 mmHg. There is no evidence of significant pericardial effusion. Signed by : Betina Rockwell, Electronically Approved : 11/27/2021 13:14:22
== END ==
LOC: ECHO 07:55
PROVIDERS: ATTEND Internal Medicine Cardiovascular Disease
DX: I34.0 Nonrheumatic mitral (valve) insufficiency (principal); I37.1 Nonrheumatic pulmonary valve insufficiency; I25.10 Atherosclerotic heart disease of native coronary artery without angina pectoris; R07.9 Chest pain, unspecified
CPT/HCPCS: 36415; 78452; 82088; 84244; 93017; 93306; A9500; J2785; C8929